=== PATIENT | female | born 1950 | race Caucasian/White ===

== ENCOUNTER → 2022-11-08 09:51 | Outpatient (CLI) | payer MEDICARE, SELFPAY ==
[2022-11-08 10:35] LABS: COVID19 -Nasal RAPID Negative (Negative)
== END ==
PROVIDERS: Family Provider Family Medicine; PCP Family Medicine; Visit Provider Surgery
DX: Z20.822 Contact with and (suspected) exposure to COVID-19 (principal); Z01.812 Encounter for preprocedural laboratory examination
CPT/HCPCS: 87635; C9803

== ENCOUNTER 2022-11-09 09:00 | Day surgery (SDC) | payer MEDICARE, SELFPAY ==
--- NOTE | 2022-11-09 | PATH_ITS ---
[facility] Accession Number: [id number] . 01 Material submitted: . cecum - CECAL POLYP . 01 Diagnosis: Cecal Polyp, Biopsy: Tubular adenoma. MRV 11/11/2022 1130 Local . 01 Electronically signed: . Chavez Franklin MD, PhD, Pathologist NPI- [id number] . 01 Gross description: . CECAL POLYP: Received in formalin is 1 fragment(s) of hardy, soft tissue measuring 0.3 x 0.3 x 0.2 cm submitted entirely in 1 cassette(s) /CPE 11/10/2022 0527 Local . 01 Pathologist provided ICD-10: D12.0 . 01 CPT . 142575 Specimen Comment: A courtesy copy of this report has been sent to [phone] Performed at: 01 [facility] [address] [place] [id number] MD Wilfredo Mcwilliams MD Phone: [phone]
[2022-11-09 09:31] VITALS: BMI 24.0
[2022-11-09] MEDS: FLEETS ENEMA 1 EACH PR (09:37)
[2022-11-09 09:47] VITALS: BP 141/76; PULSE 88; RESP 20; TEMP 36.3; O2SAT 98
[2022-11-09] MEDS: LACTATED RINGERS 1,000 ML 84 ML IV (09:51)
--- NOTE | 2022-11-09 10:15 | PM.HP.1 ---
History of Present Illness History of Present Illness Date Patient Seen: 11/09/22 Time Patient Seen: 10:22 Chief complaint: DX COLONOSCOPY Narrative: positive Cologuard test. Last colonoscopy was 7 years ago. Her daughter of colon cancer 4 years ago on Naomie Iwona. No actual symptoms. Patient History Medical History Anxiety Depression Hypercholesteremia Hypothyroid Family & Social History Social History: household members spouse Tobacco & Substance use: Smoking Status Never smoker alcohol intake current alcohol intake frequency holiday/special occasion Substance Use Type does not use Meds Home Medications and Allergies Home Medications Medication Instructions Recorded Confirmed Type levothyroxine 75 mcg tablet 75 mcg PO DAILY 11/09/22 11/09/22 History simvastatin 20 mg tablet 20 mg PO DAILY 11/09/22 11/09/22 History venlafaxine 150 mg 150 mg PO DAILY 11/09/22 11/09/22 History capsule,extended release 24 hr Allergies Allergy/AdvReac Type Severity Reaction Status Date / Time No Known Drug Allergies Allergy Verified 11/09/22 09:31 Review of Systems Review of Systems ROS: Yes All systems reviewed with the patient and are negative except as otherwise documented Exam Vital Signs (past 8 hours): - 11/09/22 09:47 Temperature 97.3 F L Pulse Rate 88 Respiratory Rate 20 Blood Pressure 141/76 H Pulse Oximetry 98 Oxygen Delivery Method Room Air Oxygen Delivery Method Room Air Const General: cooperative and anxious Nutritional Appearance: thin HENMT Head: normocephalic and atraumatic Eyes General: appearance normal, both eyes and all related structures Sclera: sclerae normal Neck Neck: trachea midline Resp Effort & Inspection: normal respiratory effort and able to speak in complete sentences Cardio Rate: regular rate Rhythm: regular rhythm GI Palpation: soft Skin General: no rashes or lesions noted and atrophy Neuro General: patient alert, patient awake and patient oriented x3 Cognition: normal cognition Psych Appearance: grossly normal Mental Status: mental status grossly normal Judgment: judgment good Assessment & Plan Assessment & Plan narrative: Positive Cologuard test Plan: colonoscopy under MAC COVID-19 COVID-19 status: Negative Time Spent With Patient Time with patient: less than 30 minutes Critical Care time: I spent a total of [] minutes of critical care time on this patient's care today; this time is exclusive of procedural time.
--- NOTE | 2022-11-09 10:26 | PM.OP.COLON ---
Operative Date/Time/Diagnoses Date of procedure: 11/09/22 Time of procedure: 10:26 Pre-op diagnosis: Positive Cologuard Post-op diagnosis: same Procedure & Clinicians Study performed: Colonoscopy under MAC Same procedure as scheduled: Yes Indications: Positive Cologuard Surgeon: Daniela Keenan Procedure Notes Procedure in detail: Preop diagnosis: Positive Cologuard Postop diagnosis: Same Operative procedure: Colonoscopy with cold forceps polypectomy under MAC Surgeon: Bindu Keenan MD Findings: Single small 3 mm polyp in the cecal area. No diverticulosis. Internal hemorrhoids. Procedure: Patient placed in a lateral position. Rectal exam performed showing slight decreased tone no masses. Colonoscope inserted into the rectum advanced to ileocecal valve with minimal difficulty. Insufflation and extraction of the scope and the above findings. Retroflex was included in the rectum. Impression: Small 3 mm polyp in the cecum. Plan: Repeat colonoscopy in 5 years unless otherwise indicated by change in clinical condition Findings: polyp(s) (3 mm polyp in the cecal area) Specimen(s): other (Polyp, cecal) Complications: none Impression: Single 3 mm polyp in the cecal area Post-procedure Recommendations: Colonoscopy in 5 years Follow up: as needed Disposition: PACU
[2022-11-09 11:02] VITALS: BP 98/58; PULSE 80; RESP 18; TEMP 36.2; O2SAT 99
[2022-11-09 11:08] VITALS: BP 96/65; PULSE 71; RESP 16; TEMP 36.1; O2SAT 100
[2022-11-09 11:12] VITALS: BP 104/61; PULSE 68; RESP 12; TEMP 36.2; O2SAT 100
[2022-11-09 11:18] VITALS: BP 104/59; PULSE 76; RESP 18; TEMP 36.4; O2SAT 100
== END 2022-11-09 11:40 | disposition home or self-care (01) ==
PROVIDERS: Family Provider Family Medicine; PCP Family Medicine; Referring Provider Surgery; Visit Provider Surgery
PROC: 0DJD8ZZ Inspection of Lower Intestinal Tract, Via Natural or Artificial Opening Endoscopic (ICD-10-PCS; CPT 45378; principal; 2022-11-09 10:45)
DX: R19.5 Other fecal abnormalities (principal); D12.0 Benign neoplasm of cecum
CPT/HCPCS: 45380; J2704